=== PATIENT | male | born 1950 | race Caucasian/White ===

== ENCOUNTER 2023-01-29 18:51 | Inpatient (IN) | payer MEDICARE, OTHER ==
[~2023-01-29] VITALS: Ht 172.7 cm; Wt 76.7 kg
[2023-01-29] MEDS ORDERED: HALOPERIDOL LACTATE 5 MG/1 ML VIAL IM ONE (19:15)
[2023-01-29] MEDS ORDERED: CLONIDINE HCL 0.1 MG TABLET PO ONE (19:15)
[2023-01-29] MEDS ORDERED: diphenhydrAMINE 50 MG CAPSULE PO ONE (19:15)
[2023-01-29] MEDS ORDERED: metoprolol PO (19:22)
[2023-01-29] MEDS ORDERED: HALOPERIDOL LACTATE 5 MG/1 ML VIAL ONE (19:38)
[2023-01-29] MEDS ORDERED: diphenhydrAMINE 50 MG CAPSULE ONE (19:38)
[2023-01-29] MEDS ORDERED: CLONIDINE HCL 0.1 MG TABLET ONE (19:38)
[2023-01-29 21:40] VITALS: BP 118/59; TEMP 98.2; O2SAT 99
[2023-01-29] MEDS ORDERED: ATOR20TA PO (22:09)
[2023-01-29] MEDS ORDERED: AMIT50TA3 PO (22:09)
[2023-01-29] MEDS ORDERED: GLIP10TA11 PO (22:25)
[2023-01-29] MEDS ORDERED: METF-440 PO (22:25)
[2023-01-29] MEDS ORDERED: METF-442 PO (22:25)
[2023-01-29] MEDS ORDERED: CLON0.1T PO (22:25)
[2023-01-29] MEDS ORDERED: BUPR-319 PO (22:25)
[2023-01-29] MEDS ORDERED: SEMA1PEN SQ (22:31)
[2023-01-29] MEDS ORDERED: CLOP75TA33 PO (22:31)
[2023-01-29] MEDS ORDERED: AMLO10TA59 PO (22:31)
[2023-01-29] MEDS ORDERED: METO-358 PO (22:31)
[2023-01-29] MEDS ORDERED: ESCI20TA PO (22:31)
[2023-01-29] MEDS ORDERED: LOSA50TA39 PO (22:31)
[2023-01-29] MEDS ORDERED: ZOLP5TAB2 PO (22:35)
[2023-01-29] MEDS ORDERED: FLUT1BLS4 IH (22:35)
[2023-01-29] MEDS ORDERED: PRIM50TA27 PO (22:35)
[2023-01-30] MEDS ORDERED: ACETAMINOPHEN 325 MG TABLET PO PRN (00:45)
[2023-01-30] MEDS ORDERED: MAGNESIUM HYDROXIDE 30 ML LIQUID UDC PO PRN (00:45)
[2023-01-30] MEDS ORDERED: MAG HYDROX/AL HYDROX/SIMETH 30 ML LIQUID UDC PO PRN (00:45)
[2023-01-30] MEDS ORDERED: METO100T7 PO (05:50)
[2023-01-30 07:51] VITALS: BP 173/74; TEMP 98; O2SAT 98
[2023-01-30] MEDS ORDERED: INSULIN REGULAR, HUMAN 300 UNIT/3 ML VIAL SQ PRN (08:15)
[2023-01-30] MEDS ORDERED: DEXTROSE 50% 50 ML DISP.SYRIN IV PRN (08:15)
[2023-01-30] MEDS: CLOPIDOGREL 75 MG TABLET PO SCH (08:16)
[2023-01-30] MEDS: METFORMIN HCL 500 MG TABLET PO SCH ×2 (08:16→17:02)
[2023-01-30] MEDS: NICOTINE 14 MG/24HR PATCH TD SCH (08:17)
[2023-01-30] MEDS: AMLODIPINE 10 MG TABLET PO SCH (08:17)
[2023-01-30] MEDS: LOSARTAN POTASSIUM 50 MG TABLET PO SCH (08:17)
[2023-01-30 08:19] LABS: BASOPHILS # (AUTO) 0.1 K/UL (0.0-0.2); BASOPHILS % (AUTO) 0.5 % (0.0-2.0); EOSINOPHILS # (AUTO) 0.2 K/uL (0.0-0.7); EOSINOPHILS % (AUTO) 1.4 % (0.0-7.0); HEMATOCRIT 40.1 % (36.7-47.1); HEMOGLOBIN 13.4 g/dL (12.5-16.3); LYMPHOCYTES % (AUTO) 25.2 % (20.5-51.5); MEAN CORPUSCULAR HEMOGLOBIN 31.5 uug (23.8-33.4); MEAN CORPUSCULAR HGB CONC 33 g/dL (32.5-36.3); MEAN CORPUSCULAR VOLUME 94.5 fL (73.0-96.2); MONOCYTES # (AUTO) 0.9 K/uL (0.1-1.30); NEUTROPHILS # (AUTO) 7.7 K/uL (1.8-8.9); NEUTROPHILS % (AUTO) 64.9 % (38.5-71.5); PLATELET COUNT (AUTO) 297 K/uL (152-348); RED BLOOD CELL COUNT(AUTO) 4.24 MIL/uL (4.06-5.63); RED CELL DISTRIBUTION WIDTH 13.8 % (12.1-16.2); WHITE BLOOD COUNT (AUTO) 11.8 K/uL (3.6-10.2)
[2023-01-30 08:20] LABS: DIFFERENTIAL COMMENT 1
[2023-01-30] MEDS: METOPROLOL SUCCINATE XL 50 MG TAB.SR.24H PO SCH (08:20)
[2023-01-30] MEDS: glipiZIDE 10 MG TABLET PO SCH ×2 (08:20→17:01)
[2023-01-30 08:49] LABS: CALCIUM 9.1 mg/dL (8.5-10.1); CARBON DIOXIDE 29 mmol/L (21-32); CHLORIDE 103 mmol/L (98-107); CREATININE 1.1 mg/dL (0.6-1.3); GLUCOSE 154 mg/dL (74-106); POTASSIUM 4.2 mmol/L (3.5-5.1); SODIUM SERUM 142 mmol/L (136-145); UREA NITROGEN, BLOOD 18 mg/dL (7-18)
[2023-01-30] MEDS ORDERED: Medication Not On Formulary EA (Metoprolol Succinate 1 TAB) PO SCH (09:00)
[2023-01-30 09:20] LABS: ALANINE AMINOTRANSFERASE 24 U/L (16-63); ALBUMIN 3.5 g/dL (3.4-5.0); ALKALINE PHOSPHATASE 78 U/L (50-136); ASPARTATE AMINOTRANSFERASE 29 U/L (15-37); BILIRUBIN,TOTAL 0.7 mg/dL (0.2-1.0); CHOLESTEROL 162 mg/dL (<200); HDL CHOLESTEROL 43 mg/dL (40-60); MAGNESIUM 1.6 mg/dL (1.8-2.4); PHOSPHOROUS 3.7 mg/dL (2.5-4.9); TOTAL PROTEIN, SERUM 7.1 g/dL (6.4-8.2); TRIGLYCERIDES 164 MG/DL (30-150)
[2023-01-30] MEDS: CLONIDINE HCL 0.1 MG TABLET PO PRN ×2 (09:29→21:03)
[2023-01-30 09:31] VITALS: BP 172/73; O2SAT 100
[2023-01-30] MEDS: FLUTICASONE/VILANTEROL 1 EACH BLST.W.DEV INH SCH (10:44)
[2023-01-30 10:58] LABS: THYROID STIMULATING HORMONE 1.855 mIU/mL (0.358-3.740)
[2023-01-30] MEDS: BLOOD SUGAR DIAGNOSTIC 1 EACH STRIP VI SCH ×3 (11:58→20:22)
[2023-01-30] MEDS: DIVALPROEX SPRINKLE 125 MG CAP.SPRINK PO SCH ×3 (13:00→17:27)
[2023-01-30 15:46] VITALS: BP 118/64; TEMP 98.2; O2SAT 100
[2023-01-30] MEDS: PRIMIDONE 50 MG TABLET PO SCH (17:02)
[2023-01-30 20:00] VITALS: BP 165/62; TEMP 98.3; O2SAT 99
[2023-01-30] MEDS ORDERED: risperiDONE 0.5 MG TABLET PO SCH (21:00)
[2023-01-30] MEDS: ATORVASTATIN 20 MG TABLET PO SCH (21:03)
[2023-01-30 22:30] VITALS: BP 138/58
[2023-01-31] MEDS: BLOOD SUGAR DIAGNOSTIC 1 EACH STRIP VI SCH ×4 (06:35→19:57)
[2023-01-31 07:45] VITALS: BP 203/83; TEMP 98.2; O2SAT 98
[2023-01-31] MEDS: glipiZIDE 10 MG TABLET PO SCH ×2 (07:56→17:17)
[2023-01-31] MEDS: METFORMIN HCL 500 MG TABLET PO SCH ×2 (08:18→17:17)
[2023-01-31] MEDS: NICOTINE 14 MG/24HR PATCH TD SCH (08:19)
[2023-01-31] MEDS: ESCITALOPRAM OXALATE 10 MG TABLET PO SCH (08:19)
[2023-01-31] MEDS: DIVALPROEX SPRINKLE 125 MG CAP.SPRINK PO SCH ×3 (08:19→17:17)
[2023-01-31] MEDS: METOPROLOL SUCCINATE XL 50 MG TAB.SR.24H PO SCH (08:21)
[2023-01-31] MEDS: CLOPIDOGREL 75 MG TABLET PO SCH (08:21)
[2023-01-31] MEDS: AMLODIPINE 10 MG TABLET PO SCH (08:22)
[2023-01-31] MEDS: LOSARTAN POTASSIUM 50 MG TABLET PO SCH (08:22)
[2023-01-31] MEDS: FLUTICASONE/VILANTEROL 1 EACH BLST.W.DEV INH SCH (08:23)
[2023-01-31 10:00] VITALS: BP 147/52; TEMP 98; O2SAT 99
[2023-01-31 15:17] VITALS: BP 152/64; TEMP 98.2; O2SAT 100
[2023-01-31] MEDS: PRIMIDONE 50 MG TABLET PO SCH (18:39)
[2023-01-31 20:00] VITALS: BP 166/71; TEMP 97.9; O2SAT 98
[2023-01-31] MEDS: ATORVASTATIN 20 MG TABLET PO SCH (20:02)
[2023-01-31] MEDS: CLONIDINE HCL 0.1 MG TABLET PO PRN (20:03)
[2023-01-31] MEDS ORDERED: risperiDONE 0.5 MG TABLET PO SCH (21:00)
[2023-01-31] MEDS ORDERED: risperiDONE 0.25 MG TABLET PO SCH (21:00)
[2023-02-01 08:00] VITALS: BP 167/74; TEMP 97.7; O2SAT 99
[2023-02-01] MEDS: glipiZIDE 10 MG TABLET PO SCH ×2 (08:24→16:41)
[2023-02-01] MEDS: METFORMIN HCL 500 MG TABLET PO SCH ×2 (08:24→17:56)
[2023-02-01] MEDS: LOSARTAN POTASSIUM 50 MG TABLET PO SCH (08:25)
[2023-02-01] MEDS: METOPROLOL SUCCINATE XL 50 MG TAB.SR.24H PO SCH (08:25)
[2023-02-01] MEDS: CLOPIDOGREL 75 MG TABLET PO SCH (08:26)
[2023-02-01] MEDS: AMLODIPINE 10 MG TABLET PO SCH (08:27)
[2023-02-01] MEDS: ESCITALOPRAM OXALATE 10 MG TABLET PO SCH (08:27)
[2023-02-01] MEDS: CYANOCOBALAMIN 1000 MCG/ML VIAL IM SCH (08:28)
[2023-02-01] MEDS: NICOTINE 14 MG/24HR PATCH TD SCH (08:28)
[2023-02-01] MEDS: DIVALPROEX SPRINKLE 125 MG CAP.SPRINK PO SCH ×3 (08:30→16:41)
[2023-02-01] MEDS: FLUTICASONE/VILANTEROL 1 EACH BLST.W.DEV INH SCH (09:43)
[2023-02-01] MEDS: CLONIDINE HCL 0.1 MG TABLET PO PRN (16:05)
[2023-02-01 16:09] VITALS: BP 197/75; TEMP 98.7; O2SAT 99
[2023-02-01] MEDS: PRIMIDONE 50 MG TABLET PO SCH (17:56)
[2023-02-01 19:01] VITALS: BP 154/62; O2SAT 98
[2023-02-01 20:09] VITALS: BP 154/62; TEMP 98; O2SAT 100
[2023-02-01] MEDS: risperiDONE 0.5 MG TABLET PO SCH (21:00)
[2023-02-01] MEDS ORDERED: risperiDONE 0.25 MG TABLET PO SCH (21:00)
[2023-02-01] MEDS: ATORVASTATIN 20 MG TABLET PO SCH (22:25)
[2023-02-02] MEDS: glipiZIDE 10 MG TABLET PO SCH ×2 (07:35→16:14)
[2023-02-02] MEDS: CLONIDINE HCL 0.1 MG TABLET PO PRN ×2 (08:00→20:45)
[2023-02-02 08:03] VITALS: BP 179/71; TEMP 97.9; O2SAT 99
[2023-02-02] MEDS: METFORMIN HCL 500 MG TABLET PO SCH ×2 (08:37→17:54)
[2023-02-02] MEDS: DIVALPROEX SPRINKLE 125 MG CAP.SPRINK PO SCH ×3 (08:37→16:14)
[2023-02-02] MEDS: AMLODIPINE 10 MG TABLET PO SCH (08:42)
[2023-02-02] MEDS: METOPROLOL SUCCINATE XL 50 MG TAB.SR.24H PO SCH (08:43)
[2023-02-02] MEDS: ESCITALOPRAM OXALATE 10 MG TABLET PO SCH (08:43)
[2023-02-02] MEDS: LOSARTAN POTASSIUM 50 MG TABLET PO SCH (08:43)
[2023-02-02] MEDS: CLOPIDOGREL 75 MG TABLET PO SCH (08:44)
[2023-02-02] MEDS: FLUTICASONE/VILANTEROL 1 EACH BLST.W.DEV INH SCH (08:45)
[2023-02-02] MEDS: CYANOCOBALAMIN 1000 MCG/ML VIAL IM SCH (08:45)
[2023-02-02] MEDS: NICOTINE 14 MG/24HR PATCH TD SCH (09:15)
[2023-02-02 15:33] VITALS: BP 112/61; TEMP 98.1; O2SAT 98
[2023-02-02] MEDS: PRIMIDONE 50 MG TABLET PO SCH (17:54)
[2023-02-02 20:11] VITALS: BP 186/67; TEMP 98; O2SAT 100
[2023-02-02] MEDS: ATORVASTATIN 20 MG TABLET PO SCH (20:44)
[2023-02-02] MEDS: risperiDONE 0.5 MG TABLET PO SCH (20:44)
[2023-02-02 21:45] VITALS: BP 156/64
[2023-02-03] MEDS: METOPROLOL SUCCINATE XL 50 MG TAB.SR.24H PO SCH (08:12)
[2023-02-03] MEDS: CLOPIDOGREL 75 MG TABLET PO SCH (08:12)
[2023-02-03] MEDS: DIVALPROEX SPRINKLE 125 MG CAP.SPRINK PO SCH ×3 (08:12→17:01)
[2023-02-03] MEDS: METFORMIN HCL 500 MG TABLET PO SCH ×2 (08:13→17:02)
[2023-02-03] MEDS: ESCITALOPRAM OXALATE 10 MG TABLET PO SCH (08:13)
[2023-02-03] MEDS: glipiZIDE 10 MG TABLET PO SCH ×2 (08:13→17:02)
[2023-02-03] MEDS: LOSARTAN POTASSIUM 50 MG TABLET PO SCH (08:16)
[2023-02-03] MEDS: AMLODIPINE 10 MG TABLET PO SCH (08:16)
[2023-02-03] MEDS: CYANOCOBALAMIN 1000 MCG/ML VIAL IM SCH (08:17)
[2023-02-03] MEDS: FLUTICASONE/VILANTEROL 1 EACH BLST.W.DEV INH SCH (08:17)
[2023-02-03] MEDS: NICOTINE 14 MG/24HR PATCH TD SCH (08:20)
[2023-02-03 08:21] VITALS: BP 191/72; TEMP 98; O2SAT 99
[2023-02-03] MEDS: GLUCERNA SHAKE 237 ML CAN PO SCH ×2 (13:25→17:02)
[2023-02-03 16:11] VITALS: BP 123/53; TEMP 98.1; O2SAT 100
[2023-02-03] MEDS: PRIMIDONE 50 MG TABLET PO SCH (17:03)
[2023-02-03] MEDS: ATORVASTATIN 20 MG TABLET PO SCH (20:37)
[2023-02-03] MEDS: risperiDONE 0.5 MG TABLET PO SCH (20:37)
[2023-02-03] MEDS: NEOMY/BACITRAC/POLYMI OINT 28.35 GM TUBE TOP SCH (20:38)
[2023-02-03 20:41] VITALS: BP 163/48; TEMP 98; O2SAT 99
[2023-02-04] MEDS: glipiZIDE 10 MG TABLET PO SCH ×2 (06:50→17:15)
[2023-02-04 08:13] VITALS: BP 170/67; TEMP 98.2; O2SAT 100
[2023-02-04] MEDS: ESCITALOPRAM OXALATE 10 MG TABLET PO SCH (08:26)
[2023-02-04] MEDS: CLOPIDOGREL 75 MG TABLET PO SCH (08:26)
[2023-02-04] MEDS: AMLODIPINE 10 MG TABLET PO SCH (08:27)
[2023-02-04] MEDS: LOSARTAN POTASSIUM 50 MG TABLET PO SCH (08:27)
[2023-02-04] MEDS: METFORMIN HCL 500 MG TABLET PO SCH ×2 (08:27→17:17)
[2023-02-04] MEDS: DIVALPROEX SPRINKLE 125 MG CAP.SPRINK PO SCH ×3 (08:27→17:15)
[2023-02-04] MEDS: METOPROLOL SUCCINATE XL 50 MG TAB.SR.24H PO SCH (08:28)
[2023-02-04] MEDS: NICOTINE 14 MG/24HR PATCH TD SCH (08:34)
[2023-02-04] MEDS: NEOMY/BACITRAC/POLYMI OINT 28.35 GM TUBE TOP SCH ×2 (08:35→20:13)
[2023-02-04] MEDS: GLUCERNA SHAKE 237 ML CAN PO SCH ×2 (08:40→17:18)
[2023-02-04] MEDS: CYANOCOBALAMIN 1000 MCG/ML VIAL IM SCH (08:40)
[2023-02-04] MEDS: FLUTICASONE/VILANTEROL 1 EACH BLST.W.DEV INH SCH (09:00)
[2023-02-04 16:17] VITALS: BP 201/72; TEMP 98; O2SAT 100
[2023-02-04] MEDS: PRIMIDONE 50 MG TABLET PO SCH (17:20)
[2023-02-04] MEDS: CLONIDINE HCL 0.1 MG TABLET PO PRN (19:02)
[2023-02-04 19:48] VITALS: BP 176/68; TEMP 98.2; O2SAT 99
[2023-02-04] MEDS: risperiDONE 0.5 MG TABLET PO SCH (20:13)
[2023-02-04] MEDS: ATORVASTATIN 20 MG TABLET PO SCH (20:13)
[2023-02-04] MEDS: hydrALAZINE HCL 50 MG TABLET PO SCH (22:01)
[2023-02-05] MEDS: hydrALAZINE HCL 50 MG TABLET PO SCH ×3 (06:21→21:14)
[2023-02-05 07:41] VITALS: BP 153/63; TEMP 98.3; O2SAT 100
[2023-02-05] MEDS: ESCITALOPRAM OXALATE 10 MG TABLET PO SCH (08:08)
[2023-02-05] MEDS: glipiZIDE 10 MG TABLET PO SCH ×2 (08:08→17:01)
[2023-02-05] MEDS: METOPROLOL SUCCINATE XL 50 MG TAB.SR.24H PO SCH (08:08)
[2023-02-05] MEDS: METFORMIN HCL 500 MG TABLET PO SCH ×2 (08:08→17:01)
[2023-02-05] MEDS: CLOPIDOGREL 75 MG TABLET PO SCH (08:08)
[2023-02-05] MEDS: DIVALPROEX SPRINKLE 125 MG CAP.SPRINK PO SCH ×3 (08:08→17:01)
[2023-02-05] MEDS: AMLODIPINE 10 MG TABLET PO SCH (08:09)
[2023-02-05] MEDS: LOSARTAN POTASSIUM 50 MG TABLET PO SCH (08:10)
[2023-02-05] MEDS: CYANOCOBALAMIN 1000 MCG/ML VIAL IM SCH (08:11)
[2023-02-05] MEDS: NICOTINE 14 MG/24HR PATCH TD SCH (08:11)
[2023-02-05] MEDS: NEOMY/BACITRAC/POLYMI OINT 28.35 GM TUBE TOP SCH ×2 (08:11→21:14)
[2023-02-05] MEDS: FLUTICASONE/VILANTEROL 1 EACH BLST.W.DEV INH SCH (08:11)
[2023-02-05] MEDS: GLUCERNA SHAKE 237 ML CAN PO SCH ×2 (08:12→17:03)
[2023-02-05 16:14] VITALS: BP 111/39; TEMP 98.1; O2SAT 100
[2023-02-05] MEDS: PRIMIDONE 50 MG TABLET PO SCH (17:08)
[2023-02-05 19:51] VITALS: BP 148/58; TEMP 98; O2SAT 100
[2023-02-05] MEDS: risperiDONE 0.5 MG TABLET PO SCH (21:14)
[2023-02-05] MEDS: ATORVASTATIN 20 MG TABLET PO SCH (21:14)
[2023-02-06] MEDS: hydrALAZINE HCL 50 MG TABLET PO SCH ×3 (06:38→22:39)
[2023-02-06] MEDS: glipiZIDE 10 MG TABLET PO SCH ×2 (06:39→17:05)
[2023-02-06 07:50] VITALS: BP 151/55; TEMP 98.2; O2SAT 100
[2023-02-06] MEDS: CLOPIDOGREL 75 MG TABLET PO SCH (08:28)
[2023-02-06] MEDS: METFORMIN HCL 500 MG TABLET PO SCH ×2 (08:28→17:07)
[2023-02-06] MEDS: FLUTICASONE/VILANTEROL 1 EACH BLST.W.DEV INH SCH (08:28)
[2023-02-06] MEDS: NICOTINE 14 MG/24HR PATCH TD SCH (08:28)
[2023-02-06] MEDS: ESCITALOPRAM OXALATE 10 MG TABLET PO SCH (08:29)
[2023-02-06] MEDS: AMLODIPINE 10 MG TABLET PO SCH (08:30)
[2023-02-06] MEDS: LOSARTAN POTASSIUM 50 MG TABLET PO SCH (08:30)
[2023-02-06] MEDS: DIVALPROEX SPRINKLE 125 MG CAP.SPRINK PO SCH ×3 (08:31→17:05)
[2023-02-06] MEDS: CYANOCOBALAMIN 1000 MCG/ML VIAL IM SCH (08:31)
[2023-02-06] MEDS: METOPROLOL SUCCINATE XL 50 MG TAB.SR.24H PO SCH (08:31)
[2023-02-06] MEDS: GLUCERNA SHAKE 237 ML CAN PO SCH ×2 (08:31→17:05)
[2023-02-06] MEDS: NEOMY/BACITRAC/POLYMI OINT 28.35 GM TUBE TOP SCH ×2 (08:32→20:36)
[2023-02-06 15:18] VITALS: BP 151/71; TEMP 98.2; O2SAT 100
[2023-02-06] MEDS: PRIMIDONE 50 MG TABLET PO SCH (17:07)
[2023-02-06 20:02] VITALS: BP 131/65; TEMP 98.1; O2SAT 98
[2023-02-06] MEDS: risperiDONE 0.5 MG TABLET PO SCH (20:35)
[2023-02-06] MEDS: ATORVASTATIN 20 MG TABLET PO SCH (20:35)
[2023-02-07] MEDS: hydrALAZINE HCL 50 MG TABLET PO SCH ×3 (05:07→21:51)
[2023-02-07 07:38] VITALS: BP 161/65; TEMP 98; O2SAT 100
[2023-02-07] MEDS: DIVALPROEX SPRINKLE 125 MG CAP.SPRINK PO SCH ×3 (08:31→17:01)
[2023-02-07] MEDS: NICOTINE 14 MG/24HR PATCH TD SCH (08:31)
[2023-02-07] MEDS: glipiZIDE 10 MG TABLET PO SCH ×2 (08:31→17:01)
[2023-02-07] MEDS: AMLODIPINE 10 MG TABLET PO SCH (08:33)
[2023-02-07] MEDS: METFORMIN HCL 500 MG TABLET PO SCH ×2 (08:34→17:10)
[2023-02-07] MEDS: CLOPIDOGREL 75 MG TABLET PO SCH (08:34)
[2023-02-07] MEDS: LOSARTAN POTASSIUM 50 MG TABLET PO SCH (08:34)
[2023-02-07] MEDS: METOPROLOL SUCCINATE XL 50 MG TAB.SR.24H PO SCH (08:34)
[2023-02-07] MEDS: ESCITALOPRAM OXALATE 10 MG TABLET PO SCH (08:34)
[2023-02-07] MEDS: CYANOCOBALAMIN 1000 MCG/ML VIAL IM SCH (08:35)
[2023-02-07] MEDS: FLUTICASONE/VILANTEROL 1 EACH BLST.W.DEV INH SCH (08:35)
[2023-02-07] MEDS: GLUCERNA SHAKE 237 ML CAN PO SCH ×2 (08:36→17:11)
[2023-02-07] MEDS: NEOMY/BACITRAC/POLYMI OINT 28.35 GM TUBE TOP SCH ×2 (08:37→21:38)
[2023-02-07 15:04] VITALS: BP 163/60; TEMP 98; O2SAT 99
[2023-02-07] MEDS: PRIMIDONE 50 MG TABLET PO SCH (17:10)
[2023-02-07 19:46] VITALS: BP 155/53; TEMP 98.2; O2SAT 100
[2023-02-07] MEDS: risperiDONE 0.5 MG TABLET PO SCH (21:37)
[2023-02-07] MEDS: ZOLPIDEM 5 MG TABLET PO PRN (21:37)
[2023-02-07] MEDS: ATORVASTATIN 20 MG TABLET PO SCH (21:37)
[2023-02-08] MEDS: hydrALAZINE HCL 50 MG TABLET PO SCH ×3 (06:40→21:14)
[2023-02-08 07:43] LABS: BASOPHILS # (AUTO) 0.1 K/UL (0.0-0.2); BASOPHILS % (AUTO) 0.5 % (0.0-2.0); EOSINOPHILS # (AUTO) 0.1 K/uL (0.0-0.7); EOSINOPHILS % (AUTO) 1.2 % (0.0-7.0); HEMATOCRIT 36.4 % (36.7-47.1); HEMOGLOBIN 12.2 g/dL (12.5-16.3); LYMPHOCYTES # (AUTO) 2.2 K/uL (0.8-4.8); LYMPHOCYTES % (AUTO) 22.5 % (20.5-51.5); MEAN CORPUSCULAR HGB CONC 33 g/dL (32.5-36.3); MEAN CORPUSCULAR VOLUME 95.6 fL (73.0-96.2); MONOCYTES # (AUTO) 0.7 K/uL (0.1-1.30); MONOCYTES % (AUTO) 7.5 % (0.0-11.0); NEUTROPHILS # (AUTO) 6.7 K/uL (1.8-8.9); NEUTROPHILS % (AUTO) 68.3 % (38.5-71.5); PLATELET COUNT (AUTO) 262 K/uL (152-348); RED BLOOD CELL COUNT(AUTO) 3.81 MIL/uL (4.06-5.63); RED CELL DISTRIBUTION WIDTH 13.8 % (12.1-16.2); WHITE BLOOD COUNT (AUTO) 9.8 K/uL (3.6-10.2)
[2023-02-08 07:49] LABS: DIFFERENTIAL COMMENT 1
[2023-02-08] MEDS: glipiZIDE 10 MG TABLET PO SCH ×2 (07:52→17:22)
[2023-02-08 08:00] VITALS: BP 162/49; TEMP 98; O2SAT 100
[2023-02-08 08:00] LABS: ALANINE AMINOTRANSFERASE 16 U/L (16-63); ALBUMIN 3.1 g/dL (3.4-5.0); ALKALINE PHOSPHATASE 77 U/L (50-136); ASPARTATE AMINOTRANSFERASE 7 U/L (15-37); BILIRUBIN,TOTAL 0.5 mg/dL (0.2-1.0); CALCIUM 8.6 mg/dL (8.5-10.1); CARBON DIOXIDE 29 mmol/L (21-32); CHLORIDE 103 mmol/L (98-107); CREATININE 1.2 mg/dL (0.6-1.3); GLUCOSE 302 mg/dL (74-106); POTASSIUM 4.6 mmol/L (3.5-5.1); SODIUM SERUM 138 mmol/L (136-145); TOTAL PROTEIN, SERUM 6.2 g/dL (6.4-8.2); UREA NITROGEN, BLOOD 22 mg/dL (7-18); VALPROIC ACID 47 ug/mL (50-100)
[2023-02-08] MEDS: DIVALPROEX SPRINKLE 125 MG CAP.SPRINK PO SCH ×3 (09:15→17:23)
[2023-02-08] MEDS: NICOTINE 14 MG/24HR PATCH TD SCH (09:15)
[2023-02-08] MEDS: METOPROLOL SUCCINATE XL 50 MG TAB.SR.24H PO SCH (09:16)
[2023-02-08] MEDS: METFORMIN HCL 500 MG TABLET PO SCH ×2 (09:16→17:23)
[2023-02-08] MEDS: ESCITALOPRAM OXALATE 10 MG TABLET PO SCH (09:16)
[2023-02-08] MEDS: LOSARTAN POTASSIUM 50 MG TABLET PO SCH (09:17)
[2023-02-08] MEDS: AMLODIPINE 10 MG TABLET PO SCH (09:17)
[2023-02-08] MEDS: CLOPIDOGREL 75 MG TABLET PO SCH (09:17)
[2023-02-08] MEDS: GLUCERNA SHAKE 237 ML CAN PO SCH (09:18)
[2023-02-08] MEDS: FLUTICASONE/VILANTEROL 1 EACH BLST.W.DEV INH SCH (09:18)
[2023-02-08] MEDS: NEOMY/BACITRAC/POLYMI OINT 28.35 GM TUBE TOP SCH ×2 (09:19→20:22)
[2023-02-08 15:06] VITALS: BP 156/59; TEMP 98.4; O2SAT 99
[2023-02-08] MEDS: PRIMIDONE 50 MG TABLET PO SCH (17:22)
[2023-02-08 20:04] VITALS: BP 190/72; TEMP 98.1; O2SAT 97
[2023-02-08] MEDS: ATORVASTATIN 20 MG TABLET PO SCH (20:21)
[2023-02-08] MEDS: risperiDONE 0.5 MG TABLET PO SCH (20:21)
[2023-02-08] MEDS: CLONIDINE HCL 0.1 MG TABLET PO PRN (20:22)
[2023-02-08] MEDS: ZOLPIDEM 5 MG TABLET PO PRN (21:12)
[2023-02-08 21:45] VITALS: BP 145/86
[2023-02-09 05:41] VITALS: BP 150/59
[2023-02-09] MEDS: hydrALAZINE HCL 50 MG TABLET PO SCH ×3 (06:34→21:44)
[2023-02-09 08:01] VITALS: BP 139/50; TEMP 98.2; O2SAT 100
[2023-02-09] MEDS: ESCITALOPRAM OXALATE 10 MG TABLET PO SCH (08:45)
[2023-02-09] MEDS: DIVALPROEX SPRINKLE 125 MG CAP.SPRINK PO SCH ×3 (08:46→17:02)
[2023-02-09] MEDS: glipiZIDE 10 MG TABLET PO SCH ×2 (08:46→17:02)
[2023-02-09] MEDS: METFORMIN HCL 500 MG TABLET PO SCH ×2 (08:47→17:02)
[2023-02-09] MEDS: METOPROLOL SUCCINATE XL 50 MG TAB.SR.24H PO SCH (08:47)
[2023-02-09] MEDS: CLOPIDOGREL 75 MG TABLET PO SCH (08:47)
[2023-02-09] MEDS: NICOTINE 14 MG/24HR PATCH TD SCH (08:48)
[2023-02-09] MEDS: AMLODIPINE 10 MG TABLET PO SCH (08:48)
[2023-02-09] MEDS: NEOMY/BACITRAC/POLYMI OINT 28.35 GM TUBE TOP SCH ×2 (08:48→21:03)
[2023-02-09] MEDS: FLUTICASONE/VILANTEROL 1 EACH BLST.W.DEV INH SCH (08:50)
[2023-02-09] MEDS: LOSARTAN POTASSIUM 50 MG TABLET PO SCH (08:50)
[2023-02-09] MEDS ORDERED: CYANOCOBALAMIN 1000 MCG/ML VIAL IM SCH (09:00)
[2023-02-09] MEDS: CYANOCOBALAMIN 1,000 MCG TABLET PO SCH (14:35)
[2023-02-09 15:22] VITALS: BP 131/58; TEMP 98; O2SAT 100
[2023-02-09] MEDS: PRIMIDONE 50 MG TABLET PO SCH (17:36)
[2023-02-09 19:52] VITALS: BP 136/48; TEMP 98; O2SAT 99
[2023-02-09] MEDS: risperiDONE 0.5 MG TABLET PO SCH (21:03)
[2023-02-09] MEDS: ATORVASTATIN 20 MG TABLET PO SCH (21:03)
[2023-02-09] MEDS: ZOLPIDEM 5 MG TABLET PO PRN (23:16)
[2023-02-10] MEDS: hydrALAZINE HCL 50 MG TABLET PO SCH ×3 (06:20→21:29)
[2023-02-10 07:50] VITALS: BP 96/60; TEMP 98.3; O2SAT 100
[2023-02-10] MEDS: METFORMIN HCL 500 MG TABLET PO SCH ×2 (08:04→17:26)
[2023-02-10] MEDS: glipiZIDE 10 MG TABLET PO SCH ×2 (08:04→16:14)
[2023-02-10 08:56] VITALS: BP 152/58; O2SAT 98
[2023-02-10] MEDS: NICOTINE 14 MG/24HR PATCH TD SCH (08:57)
[2023-02-10] MEDS: DIVALPROEX SPRINKLE 125 MG CAP.SPRINK PO SCH ×3 (08:57→16:14)
[2023-02-10] MEDS: FLUTICASONE/VILANTEROL 1 EACH BLST.W.DEV INH SCH (08:57)
[2023-02-10] MEDS: CYANOCOBALAMIN 1,000 MCG TABLET PO SCH (08:57)
[2023-02-10] MEDS: ESCITALOPRAM OXALATE 10 MG TABLET PO SCH (08:58)
[2023-02-10] MEDS: AMLODIPINE 10 MG TABLET PO SCH (08:59)
[2023-02-10] MEDS: CLOPIDOGREL 75 MG TABLET PO SCH (08:59)
[2023-02-10] MEDS: LOSARTAN POTASSIUM 50 MG TABLET PO SCH (08:59)
[2023-02-10] MEDS: METOPROLOL SUCCINATE XL 50 MG TAB.SR.24H PO SCH (09:00)
[2023-02-10] MEDS: NEOMY/BACITRAC/POLYMI OINT 28.35 GM TUBE TOP SCH (09:00)
[2023-02-10 16:12] VITALS: BP 138/56; TEMP 98.1; O2SAT 100
[2023-02-10] MEDS: PRIMIDONE 50 MG TABLET PO SCH (17:26)
[2023-02-10 20:00] VITALS: BP 155/61; TEMP 98.1; O2SAT 97
[2023-02-10] MEDS: ATORVASTATIN 20 MG TABLET PO SCH (20:27)
[2023-02-10] MEDS: risperiDONE 0.5 MG TABLET PO SCH (20:27)
[2023-02-10] MEDS: ZOLPIDEM 5 MG TABLET PO PRN (21:29)
[2023-02-11] MEDS: hydrALAZINE HCL 50 MG TABLET PO SCH ×3 (05:52→21:04)
[2023-02-11] MEDS: glipiZIDE 10 MG TABLET PO SCH ×2 (05:52→17:21)
[2023-02-11 08:24] VITALS: BP 157/58; TEMP 98.1; O2SAT 100
[2023-02-11] MEDS: CLOPIDOGREL 75 MG TABLET PO SCH (08:45)
[2023-02-11] MEDS: ESCITALOPRAM OXALATE 10 MG TABLET PO SCH (08:45)
[2023-02-11] MEDS: AMLODIPINE 10 MG TABLET PO SCH (08:46)
[2023-02-11] MEDS: DIVALPROEX SPRINKLE 125 MG CAP.SPRINK PO SCH ×3 (08:46→17:21)
[2023-02-11] MEDS: LOSARTAN POTASSIUM 50 MG TABLET PO SCH (08:54)
[2023-02-11] MEDS: CYANOCOBALAMIN 1,000 MCG TABLET PO SCH (08:54)
[2023-02-11] MEDS: NICOTINE 14 MG/24HR PATCH TD SCH (08:54)
[2023-02-11] MEDS: METFORMIN HCL 500 MG TABLET PO SCH ×2 (08:54→17:21)
[2023-02-11] MEDS: METOPROLOL SUCCINATE XL 50 MG TAB.SR.24H PO SCH (08:54)
[2023-02-11] MEDS: FLUTICASONE/VILANTEROL 1 EACH BLST.W.DEV INH SCH (08:55)
[2023-02-11 16:19] VITALS: BP 168/55; TEMP 98; O2SAT 100
[2023-02-11] MEDS: PRIMIDONE 50 MG TABLET PO SCH (17:21)
[2023-02-11 19:55] VITALS: BP 178/70; TEMP 98.1; O2SAT 99
[2023-02-11] MEDS: ATORVASTATIN 20 MG TABLET PO SCH (21:03)
[2023-02-11] MEDS: risperiDONE 0.5 MG TABLET PO SCH (21:03)
[2023-02-11] MEDS: ZOLPIDEM 5 MG TABLET PO PRN (22:38)
[2023-02-12] MEDS: hydrALAZINE HCL 50 MG TABLET PO SCH (06:48)
[2023-02-12] MEDS: glipiZIDE 10 MG TABLET PO SCH (07:06)
[2023-02-12 07:53] VITALS: BP 186/68; TEMP 98; O2SAT 100
[2023-02-12] MEDS: METOPROLOL SUCCINATE XL 50 MG TAB.SR.24H PO SCH (08:06)
[2023-02-12] MEDS: METFORMIN HCL 500 MG TABLET PO SCH (08:06)
[2023-02-12] MEDS: NICOTINE 14 MG/24HR PATCH TD SCH (08:06)
[2023-02-12] MEDS: LOSARTAN POTASSIUM 50 MG TABLET PO SCH (08:07)
[2023-02-12] MEDS: CYANOCOBALAMIN 1,000 MCG TABLET PO SCH (08:07)
[2023-02-12] MEDS: DIVALPROEX SPRINKLE 125 MG CAP.SPRINK PO SCH (08:08)
[2023-02-12] MEDS: AMLODIPINE 10 MG TABLET PO SCH (08:08)
[2023-02-12] MEDS: ESCITALOPRAM OXALATE 10 MG TABLET PO SCH (08:08)
[2023-02-12] MEDS: CLOPIDOGREL 75 MG TABLET PO SCH (08:09)
[2023-02-12] MEDS: FLUTICASONE/VILANTEROL 1 EACH BLST.W.DEV INH SCH (08:09)
[2023-02-12 09:14] VITALS: BP 160/57
[2023-02-12] MEDS: CLONIDINE HCL 0.1 MG TABLET PO PRN (09:14)
== END 2023-02-12 11:15 | DRG 885 ==
LOC: ER 18:56 → GPS 21:16
PROVIDERS: ADMIT Psychiatry & Neurology Psychosomatic Medicine; ATTEND Internal Medicine
DX: F29 Unspecified psychosis not due to a substance or known physiological condition (principal); R45.851 Suicidal ideations; E11.9 Type 2 diabetes mellitus without complications; E53.8 Deficiency of other specified B group vitamins; E66.9 Obesity, unspecified; E78.5 Hyperlipidemia, unspecified; E83.42 Hypomagnesemia; F17.210 Nicotine dependence, cigarettes, uncomplicated; F22 Delusional disorders; F31.9 Bipolar disorder, unspecified; G20 Parkinson's disease; I10 Essential (primary) hypertension; I25.10 Atherosclerotic heart disease of native coronary artery without angina pectoris; I12.9 Hypertensive chronic kidney disease with stage 1 through stage 4 chronic kidney disease, or unspecified chronic kidney disease; N18.2 Chronic kidney disease, stage 2 (mild); I70.0 Atherosclerosis of aorta; Z20.822 Contact with and (suspected) exposure to COVID-19; J44.9 Chronic obstructive pulmonary disease, unspecified; N40.0 Benign prostatic hyperplasia without lower urinary tract symptoms; M19.90 Unspecified osteoarthritis, unspecified site; Z68.25 Body mass index [BMI] 25.0-25.9, adult; Z73.6 Limitation of activities due to disability; G25.0 Essential tremor
CPT/HCPCS: 36415; 70450; 71045; 80164; 83735; 84100; 84443; 85025; 93005; J1630; J1815; J3420; Q0163